=== PATIENT | male | born 1985 | race African-American/Black ===

== ENCOUNTER 2021-08-02 13:50 | Emergency (ER) | payer OTHER ==
[~2021-08-02] VITALS: Ht 182.9 cm; Wt 102.0 kg
[2021-08-02 14:30] VITALS: BP 143/88
[2021-08-02] MEDS ORDERED: LIDOCAINE 1% Multi-Dose 20 ML VIAL. INJ ONE (15:00)
--- NOTE | 2021-08-02 15:14 | RAD ---
Exam: Left hand 3 views INDICATION: Laceration TECHNIQUE: Frontal, lateral and oblique views left hand Comparisons: None FINDINGS: Bone mineralization is normal. No acute or healed fractures. Soft tissues are unremarkable. Joint spa art are well-maintained. IMPRESSION: No acute osseous abnormality of the left hand Electronically signed by: Tricia Sullivan MD (08/02/2021 3:11 PM) [facility]
--- NOTE | 2021-08-02 15:25 | PHYS DOC ---
Past Medical History Past Surgical History: Other Additional Past Surgical Histo: lumbar surgery Smoking Status: Current Some Day Smoker Alcohol Use: Occasionally General Adult EDM: Chief Complaint: LACERATION/AVULSION HPI: HPI: Patient is a 35 year old male who presents with left palm of hand laceration that occurred after he was using a box knife and the knife slipped and cut his left hand. Patient states he does not need a tetanus shot. Rates his pain a 4 out of 10 states it is burning. Denies numbness or tingling, focal weakness, joint deformity. Bleeding is controlled. History of lumbar surgery and smoking. Review of Systems: Review of Systems: Constitutional: Denies fever or chills. [] Eyes: Denies change in visual acuity. [] HENT: Denies nasal congestion or sore throat. [] Respiratory: Denies cough or shortness of breath. [] Cardiovascular: Denies chest pain or edema. [] GI: Denies abdominal pain, nausea, vomiting, bloody stools or diarrhea. [] : Denies dysuria. [] Musculoskeletal: Denies back pain or joint pain. + Left hand pain [] Integument: Denies rash. + Left palm of hand laceration [] Neurologic: Denies headache, focal weakness or sensory changes. [] Endocrine: Denies polyuria or polydipsia. [] Lymphatic: Denies swollen glands. [] Psychiatric: Denies depression or anxiety. [] Heart Score: C/O Chest Pain: No Risk Factors: Risk Factors: DM, Current or recent (<one month) smoker, HTN, HLP, family history of CAD, obesity. Risk Scores: Score 0 - 3: 2.5% MACE over next 6 weeks - Discharge Home Score 4 - 6: 20.3% MACE over next 6 weeks - Admit for Clinical Observation Score 7 - 10: 72.7% MACE over next 6 weeks - Early Invasive Strategies Current Medications: Current Medications Medications (Trade) Dose Ordered Sig/Sylwia Start Time Stop Time Status Last Admin Dose Admin Lidocaine HCl (Lidocaine 1% 20ml Vial) 20 ml 1X ONCE 08/02/21 15:00 08/02/21 15:01 DC 08/02/21 14:53 20 ML Allergies: Allergies: Allergies Coded Allergies Type Severity Reaction Last Updated Verified No Known Drug Allergies 08/02/21 No Physical Exam: PE: Constitutional: Well developed, well nourished, no acute distress, non-toxic appearance. [] HENT: Normocephalic, atraumatic, bilateral external ears normal, oropharynx moist, no oral exudates, nose normal. [] Eyes: PERRLA, EOMI, conjunctiva normal, no discharge. [] Neck: Normal range of motion, no tenderness, supple, no stridor. [] Cardiovascular:Heart rate regular rhythm, no murmur [] Lungs & Thorax: Bilateral breath sounds clear to auscultation [] Abdomen: Bowel sounds normal, soft, no tenderness, no masses, no pulsatile masses. [] Skin: Warm, dry, no erythema, no rash. Left palm of hand on radial side distal to index and thumb laceration approximately 1 inch with bleeding controlled. Edges approximated. [] Back: No tenderness, no CVA tenderness. [] Extremities: No tenderness, no cyanosis, no clubbing, ROM intact, no edema. [] Neurologic: Alert and oriented X 3, normal motor function, normal sensory function, no focal deficits noted. [] Psychologic: Affect normal, judgement normal, mood normal. [] Current Patient Data: Vital Signs: Vital Signs Date Time Temp Pulse Resp B/P (MAP) Pulse Ox O2 Delivery O2 Flow Rate FiO2 08/02/21 14:30 98.7 74 16 143/88 (106) 100 Room Air 98.7 EKG: EKG: [] Radiology/Procedures: Radiology/Procedures: [] Impression: [id number] [place] [address] IMAGING REPORT Signed PATIENT: IMMANUEL CHACONOUNT: [id number] : 1985 LOCATION: ER AGE: 35 SEX: M EXAM STATUS: REG ER ORD. PHYSICIAN: JOSIE CONNOLLY APRN REASON: LACERATION PROCEDURE: HAND LEFT 3V Exam: Left hand 3 views INDICATION: Laceration TECHNIQUE: Frontal, lateral and oblique views left hand Comparisons: None FINDINGS: Bone mineralization is normal. No acute or healed fractures. Soft tissues are unremarkable. Joint spaces are well-maintained. IMPRESSION: No acute osseous abnormality of the left hand Electronically signed by: Tricia Scott MD (08/02/2021 3:11 PM) [facility] DICTATED and SIGNED BY: TRICIA SCOTT MD DATE: 08/02/21 [id number] 0 Course & Med Decision Making: Course & Med Decision Making Pertinent Labs and Imaging studies reviewed. (See chart for details) See HPI. Alert and oriented x4. Ambulatory steady gait. Patient can make a full fist and wiggle all of his fingers. Sensations intact. Radial pulse strong and present. Cap refill less than 2 seconds. Laceration repair Location: Left palm of hand on Radial side distal to index finger, 1 inch Local anesthesia: 1% lidocaine Interrupted sutures/Internal sutures: 5 sutures using 4-0 Nerve/ligament/muscle damage: None Cleaning and irrigation: Saline and chlorhexidine The appropriate timeout was taken. The area was prepped and draped in the usual sterile fashion. The wound was copiously irrigated with normal saline and chlorhexidine. Patient tolerated well without complication. Dressing was applied to the area follow-up education is given to observe for signs and symptoms of infection, bleeding and to follow-up promptly if these occur. Patient can return in 48 hours for a wound recheck. Sutures to be removed in 7 to 10 days. [] [] Dragon Disclaimer: Dragon Disclaimer: This electronic medical record was generated, in whole or in part, using a voice recognition dictation system. Departure Departure Impression: Primary Impression: Laceration Disposition: 01 HOME / SELF CARE / HOMELESS Condition: STABLE Referrals: UNKNOWN PCP NAME (PCP) Patient Instructions: Laceration Care, Adult Additional Instructions: Sutures need to come out in 10 days. Keep it clean and covered. Watch for signs of infection. JOSIE CONNOLLY APRN Aug 02, 2021 15:25
== END 2021-08-02 15:37 | disposition home or self-care (01) ==
LOC: ER 13:50
DX: S61.412A Laceration without foreign body of left hand, initial encounter (principal); F17.200 Nicotine dependence, unspecified, uncomplicated; W26.0XXA Contact with knife, initial encounter; Y93.89 Activity, other specified; Y92.89 Other specified places as the place of occurrence of the external cause; Y99.8 Other external cause status
CPT/HCPCS: 12001; 73130; 99283; J3490